=== PATIENT | male | born 1965 | race Caucasian/White ===

== ENCOUNTER → 2018-07-22 | Outpatient (CLI) | payer OTHER, BC ==
[~2018-07-22] MED LIST: IOPAMIDOL 76% 150 ML INFUS BTL 150 ML ONE
--- NOTE | 2018-07-22 16:50 | RADIOLOGY IMAGING REPORT ---
FACILITY: [facility] PATIENT NAME: Amarjit Keller : 1965 MR: [id number] V: [id number] EXAM DATE: ORDERING PHYSICIAN: RENA BORWN TECHNOLOGIST[place] [facility] [place] Amarjit [place] : 1965 Visit/Account:[id number] Date of Sevice: 07/22/2018 CT CHEST W & W/O CON HISTORY: Hypoxemia, right-sided pulmonary nodule TECHNIQUE: CT chest with and without intravenous contrast. Contiguous helical images was performed f rom the lung apices to below the diaphragm. One of the following dose optimization techniques was utilized in the performance of this exam: Autom ated exposure control; adjustment of the mA and/or kV according to the patient's size; or use of an i terative reconstruction technique. Specific details can be referenced in the facility's radiology C T exam operational policy. CONTRAST: 75 cc of Isovue-370 COMPARISON: None. FINDINGS: Heart/vessels: Left ventricle is dilated concerning for a dilated cardiomyopathy in this age group. Left atrium is also slightly dilated. Right heart is normal in size and configuration. Main pulmonary artery measures 3.3 cm. Recommend an echocardiogram for further evaluation. No evidence for central pulmonary embolism. Mediastinum: There is a small hiatal hernia. Lymph nodes: Slightly prominent mediastinal lymph nodes warrant follow-up. Sarcoidosis is not exclud ed. Prevascular lymph node image 22 measures 1 x 0.7 cm Right paratracheal lymph node image 28 measures 1.5 x 1 cm Right hilar lymph node image 43 measures 1.6 x 1.4 cm Subcarinal lymph node image 49 measures 3.6 x 1.4 cm. Lungs/pleura: Benign calcified right upper lobe granuloma measures 9 mm presumably accounting for th e plain film finding. There is an azygous lobe and azygous fissure which is a normal variant. Calcifi ed left lung granuloma is noted image 47. 5 mm noncalcified micronodule is noted series 11, image 139 . Mild bronchial thickening is noted. Some faint groundglass change around the right hilum image 152 is noted. Visualized upper abdomen: Negative. Bones/soft tissues: T8 compression fracture measures 30% of the vertebral body height of uncertain c hronicity. IMPRESSION: 1. Benign calcified 9 mm right upper lobe granuloma. Some other calcified benign granulomas are note d. 2. Dilated left ventricle out of proportion for age concerning for a dilated cardiomyopathy. Recommen d an echocardiogram for further evaluation. Left atrium is also slightly dilated. 3. Slightly prominent mediastinal lymph nodes described above. These lymph nodes could be reactive or possibly related to sarcoidosis. Recommend a follow-up CT scan in 3 months for reevaluation. 4. Right lower lobe noncalcified micronodule can be followed. Report Dictated By: Curtis Dickens MD at 07/22/2018 4:31 PM Report E-Signed By: Curtis Dickens MD at 07/22/2018 4:46 PM WSN:[id number]
== END ==
LOC: CT 15:44
PROVIDERS: ATTEND Physician Assistant
DX: R91.1 Solitary pulmonary nodule (principal)
CPT/HCPCS: 71270; Q9967

== ENCOUNTER 2018-10-04 09:20 | Inpatient (IN) | payer OTHER, BC ==
[~2018-10-04] VITALS: Ht 180.3 cm; Wt 108.3 kg
--- NOTE | 2018-10-04 09:31 | ER Report ---
History and Physical Time Seen By MD: 09:29 Hx. of Stated Complaint: HAD AND ECHO FOR LEG SWELLING. ECHO SENT PATIENT DUE TO EJECTION FRACTION. HPI/ROS CHIEF COMPLAINT: Shortness of breath HISTORY OF PRESENT ILLNESS: Patient is a 53-year-old male comes emergency Department today with a complaint of shortness of breath patient has been seen by primary care had a CT done after neb normal chest x-ray shows some cardiomyo jewell he's had some shortness of breath some exertional dyspnea echocardiogram was performed today and had an abnormal ejection fraction the low side sent him here for evaluation patient says he has no orthopnea no PND but has exertional dyspnea shortness of breath and lower extremity swelling bilaterally patient denies any abdominal pain nausea vomiting diarrhea fever chills REVIEW OF SYSTEMS: Respiratory: No cough Cardiovascular: No chest pain, no palpitations. Gastrointestinal: No vomiting, no abdominal pain. Musculoskeletal: No back pain. Remainder of the 14 system rev: Yes Allergies: Coded Allergies: No Known Drug Allergies (Unverified , 10/04/18) Home Meds No Active Prescriptions or Reported Meds Reviewed Nurses Notes: Yes Old Medical Records Reviewed: Yes Constitutional Vital Sign - Last 24 Hours 10/04/18 10/04/18 10/04/18 10/04/18 09:24 09:30 10:00 11:00 Temp 97.2 Pulse 97 99 86 84 Resp 18 27 19 20 B/P (MAP) 123/91 138/109 (119) 138/90 (106) 137/101 (113) Pulse Ox 91 91 90 88 O2 Delivery Room Air 10/04/18 10/04/18 11:30 12:00 Pulse 84 Resp 19 B/P (MAP) 136/100 (112) Pulse Ox 87 O2 Flow Rate 2.0 Physical Exam General Appearance: The patient is alert, has no immediate need for airway protection and no current signs of toxicity. [ ] Eyes: Pupils equal and round no injection. Respiratory: Bibasilar crackles Cardiac: regular rate and rhythm [ ] Gastrointestinal: Abdomen is soft and non tender, no masses, bowel sounds normal. Musculoskeletal: Neck: Neck is supple and non tender. Abdomen examination shows +2 pitting edema bilaterally Skin: No rashes or lesions. [ ] DIFFERENTIAL DIAGNOSIS: After history and physical exam differential diagnosis was considered for CHF CHF exacerbation exertional dyspnea myocardial infarction Medical Decision Making Data Points Result Diagram: 10/04/189547/19 0955 Laboratory Hematology Test 10/04/18 09:55 Red Blood Count 5.82 M/uL (4.00-5.60) Mean Corpuscular Volume 89.4 fL (80.0-96.0) Mean Corpuscular Hemoglobin 29.7 pg (26.0-33.0) Mean Corpuscular Hemoglobin Concent 33.3 g/dL (32.0-36.0) Red Cell Distribution Width 14.8 % (11.5-14.5) Mean Platelet Volume 9.7 fL (7.2-11.1) Neutrophils (%) (Auto) 67.2 % (39.4-72.5) Lymphocytes (%) (Auto) 21.0 % (17.6-49.6) Monocytes (%) (Auto) 9.7 % (4.1-12.4) Eosinophils (%) (Auto) 1.6 % (0.4-6.7) Basophils (%) (Auto) 0.5 % (0.3-1.4) Nucleated RBC Relative Count (auto) 0.3 /100WBC Neutrophils # (Auto) 5.2 K/uL (2.0-7.4) Lymphocytes # (Auto) 1.6 K/uL (1.3-3.6) Monocytes # (Auto) 0.8 K/uL (0.3-1.0) Eosinophils # (Auto) 0.1 K/uL (0.0-0.5) Basophils # (Auto) 0.0 K/uL (0.0-0.1) Nucleated RBC Absolute Count (auto) 0.02 K/uL D-Dimer Quantitative (PE/DVT) 0.67 ug/ml (0-0.50) Sodium Level 141 mmol/L (137-145) Potassium Level 4.6 mmol/L (3.5-5.0) Chloride Level 113 mmol/L (98-107) Carbon Dioxide Level 21 mmol/L (22-30) Blood Urea Nitrogen 22 mg/dl (9-21) Creatinine 1.30 mg/dl (0.66-1.25) Glomerular Filtration Rate Calc 57.7 Random Glucose 124 mg/dl (75-110) Calcium Level 9.1 mg/dl (8.4-10.2) Total Bilirubin 1.8 mg/dl (0.2-1.3) Aspartate Amino Transf (AST/SGOT) 48 U/L (0-35) Alanine Aminotransferase (ALT/SGPT) 78 U/L (0-56) Alkaline Phosphatase 71 U/L (0-126) Troponin I 0.049 ng/ml B-Type Natriuretic Peptide 1610 pg/ml (0-100) Total Protein 6.2 g/dl (6.3-8.2) Albumin 3.5 g/dl (3.5-5.0) Chemistry Test 10/04/18 09:55 White Blood Count 7.8 k/uL (4.5-11.0) Red Blood Count 5.82 M/uL (4.00-5.60) Hemoglobin 17.3 g/dL (14.0-18.0) Hematocrit 52.0 % (42.0-52.0) Mean Corpuscular Volume 89.4 fL (80.0-96.0) Mean Corpuscular Hemoglobin 29.7 pg (26.0-33.0) Mean Corpuscular Hemoglobin Concent 33.3 g/dL (32.0-36.0) Red Cell Distribution Width 14.8 % (11.5-14.5) Platelet Count 185 K/uL (150-450) Mean Platelet Volume 9.7 fL (7.2-11.1) Neutrophils (%) (Auto) 67.2 % (39.4-72.5) Lymphocytes (%) (Auto) 21.0 % (17.6-49.6) Monocytes (%) (Auto) 9.7 % (4.1-12.4) Eosinophils (%) (Auto) 1.6 % (0.4-6.7) Basophils (%) (Auto) 0.5 % (0.3-1.4) Nucleated RBC Relative Count (auto) 0.3 /100WBC Neutrophils # (Auto) 5.2 K/uL (2.0-7.4) Lymphocytes # (Auto) 1.6 K/uL (1.3-3.6) Monocytes # (Auto) 0.8 K/uL (0.3-1.0) Eosinophils # (Auto) 0.1 K/uL (0.0-0.5) Basophils # (Auto) 0.0 K/uL (0.0-0.1) Nucleated RBC Absolute Count (auto) 0.02 K/uL D-Dimer Quantitative (PE/DVT) 0.67 ug/ml (0-0.50) Glomerular Filtration Rate Calc 57.7 Calcium Level 9.1 mg/dl (8.4-10.2) Total Bilirubin 1.8 mg/dl (0.2-1.3) Aspartate Amino Transf (AST/SGOT) 48 U/L (0-35) Alanine Aminotransferase (ALT/SGPT) 78 U/L (0-56) Alkaline Phosphatase 71 U/L (0-126) Troponin I 0.049 ng/ml B-Type Natriuretic Peptide 1610 pg/ml (0-100) Total Protein 6.2 g/dl (6.3-8.2) Albumin 3.5 g/dl (3.5-5.0) Coagulation Test 10/04/18 09:55 D-Dimer Quantitative (PE/DVT) 0.67 ug/ml ED Course/Re-evaluation ED Course ED course medical decision make a 50-year-old male sent here after having an abnormal echocardiogram showing an ejection fraction about 25-20% patient has no known clear etiology of his new onset congestive heart failure he had a BNP of 1600 on arrival here to slight bump in his d-dimer 0.[address] injury and subsequently followed resulting in an obstructive pattern consistent with a right lower lobe infarct secondary to a pulmonary embolus. Due to his comorbidities Nuance of diagnosis and his pulmonary embolus will admit him to date for hospitalist service for further workup and management Decision to Disposition Date: Oct 04, 2018 Decision to Disposition Time: 12:12 Depart Departure Latest Vital Signs Vital Signs Date Time Temp Pulse Resp B/P (MAP) Pulse Ox O2 Delivery O2 Flow Rate FiO2 10/04/18 12:00 2.0 10/04/18 11:30 84 19 136/100 (112) 87 10/04/18 09:24 97.2 Room Air Impression: Primary Impression: Pulmonary embolus Additional Impression: Congestive heart failure Condition: Improved Disposition: Admitted from ER New Scripts No Active Prescriptions or Reported Meds Problem Qualifiers DELTA WALKER MD Oct 04, 2018 09:31
[2018-10-04 09:50] LABS: PLATELET COUNT, AUTOMATED 185 K/uL (150-450)
--- NOTE | 2018-10-04 10:19 | RADIOLOGY IMAGING REPORT ---
FACILITY: [facility] PATIENT NAME: Amarjit Keller : 1965 MR: [id number] V: [id number] EXAM DATE: ORDERING PHYSICIAN: DELTA WALKER TECHNOLOGIST: Location: [facility] [place] Patient: Amarjit Keller : 1965 Visit/Account:[id number] Date of Sevice: 10/04/2018 Exam type: CHEST PA LAT History: Hypoxemia, right pulmonary nodule Comparison: CT of the chest July 22, 2018. Findings: 9 mm partially calcified nodule in the right midlung field is again seen. There is now blunted right costophrenic angle not present previously consistent with a small right pleural effusion. Cardiac s ilhouette is enlarged. There is no evidence of overt pulmonary edema. Mild spondylotic changes of t he thoracic spine IMPRESSION: 1. 9 mm partially calcified nodule in the right midlung field appears similar to the prior CT Small right pleural effusion Report Dictated By: Delmy Elizabeth MD at 10/04/2018 10:13 AM Report E-Signed By: Delmy Elizabeth MD at 10/04/2018 10:15 AM WSN:[id number]
[2018-10-04] MEDS ORDERED: NS(*) 0.9% 50 ML BAG 50 ML ONE (10:33)
[2018-10-04] MEDS ORDERED: IOPAMIDOL 76% 100 ML INFUS BTL 100 ML ONE (10:33)
--- NOTE | 2018-10-04 11:00 | EKG ---
FACILITY: [facility] PATIENT NAME: RANDY GALO : [id number] MR: [id number] V: [id number] EXAM DATE: ORDERING PHYSICIAN: DELTA WALKER TECHNOLOGIST: Test Reason : Blood Pressure : / mmHG Vent. Rate : 093 BPM Atrial Rate : 093 BPM P-R Int : 152 ms QRS Dur : 104 ms QT Int : 394 ms P-R-T Axes : 063 063 058 degrees QTc Int : 489 ms Sinus rhythm with occasional premature ventricular complexes ST depression in in lead II No previous ECGs available Confirmed by KRISTEN WONG ([id number]) on 10/04/2018 4:01:28 PM Referred By: Confirmed By:KRSITEN WONG
--- NOTE | 2018-10-04 11:27 | RADIOLOGY IMAGING REPORT ---
FACILITY: [facility] PATIENT NAME: Amarjit Keller : 1965 MR: [id number] V: [id number] EXAM DATE: ORDERING PHYSICIAN: DELTA WALKER TECHNOLOGIST: Location: [facility] [place] Patient: Amarjit Keller : 1965 Visit/Account:[id number] Date of Sevice: 10/04/2018 CT CTA CHEST W & W/O CON HISTORY: Rule out pulmonary embolism ADDITIONAL HISTORY: None. TECHNIQUE: CTA chest with intravenous contrast. Axial imaging acquired following administration of IV contrast timed for maximum opacification of the pulmonary arterial vasculature. Slab 3-D MIP sanford nstructed images were also created for further evaluation and interpretation. Reconstruction of the [facility] data set includes multiplanar 2-D in the sagittal and coronal planes and 3-D reconstructed milagro nal slab MIP series. 3-D images were created by the technologist.Dose Lowering Technique One of the following dose optimization techniques was utilized in the performance of this exam: Autom ated exposure control; adjustment of the mA and/or kV according to the patient's size; or use of an i terative reconstruction technique. Specific details can be referenced in the facility's radiology C T exam operational policy. CONTRAST: 90 mL Isovue-370 COMPARISON: July 22, 2018 FINDINGS: Lungs/pleura: 1 cm calcification in the superior right middle lobe is again seen. There is been dev elopment of a small to moderate posterior layering right pleural effusion and a small amount compress raymond atelectasis the right lower lobe. There is chronic scarring in the left lower lobe that appears unchanged small calcified granulomas i n the inferior left upper lobe again seen. There is a tiny left pleural effusion Heart/vessels: The contrast bolus to the segmental and subsegmental arterial branches in the right l ower lobe is asymmetric relative to the remainder the pulmonary arterial tree. Discrete cut off of t he vessels is not seen however this finding is suspicious for potential pulmonary emboli. The remain elieser the pulmonary arterial tree is well-opacified. Again noted is cardiomegaly Mediastinum/lymph nodes: There has been a slight increase in the mediastinal adenopathy. The prevascular space lymph node previously measured 1 x 0.7 cm now measures 1.4 x 1 cm. . There are new prevascular space lymph nodes the largest now measuring 1.4 x 1.3 cm. The pretracheal lymph node previously measured 1.5 x 1 cm now measures 1.9 x 1.6 cm. the right hilar lymph node previously measured 1.6 x 1.4 cm now measures 2 x 1.2 cm. Subcarinal lymph node previously measured 3.6 x 1.4 cm now measures 3.3 x 2.2 cm Visualized upper abdomen: There suggestion of mild gallbladder wall thickening Bones/soft tissues: Spondylotic changes of the thoracic spine. Mild compression fracture T8 appears unchanged Additional findings: None IMPRESSION: The contrast bolus to the segmental and subsegmental arterial branches to the right lower lobe is asy mmetric relative to the remainder the pulmonary arterial tree. Discrete cutoff of vessels is not see n however this finding is suspicious for pulmonary emboli given the asymmetry. Cardiomegaly There is a small to moderate posterior layering right pleural effusion and compressive atelectasis in the right lower lobe Chronic scarring left lower lobe Tiny left pleural effusion Slight increase in the mediastinal adenopathy as described above. This could be reactive however fol low-up recommended Suggestion of mild gallbladder wall thickening Results were called to Rajinder Grier at 10/04/2018 11:22 AM. Report Dictated By: Delmy Elizabeth MD at 10/04/2018 10:53 AM Report E-Signed By: Delmy Elizabeth MD at 10/04/2018 11:23 AM WSN:[email or web address]
[2018-10-04 12:55] VITALS: BP 108/86
[2018-10-04] MEDS ORDERED: FUROSEMIDE 40 MG/4 ML VIAL IVP ONE (15:00)
--- NOTE | 2018-10-04 15:17 | History & Physical ---
History of Present Illness Chief Complaint Shortness of breath History of Present Illness This patient presented to the emergency room after an echocardiogram earlier today. He was sent after it was discovered that his ejection fraction was nahomy mated to be 20-25%. He reports that he has been feeling increased fatigue since March. He was treated with antibiotics several times since then for respiratory type complaints. A CT scan was done in June and showed a dilated left ventricle. He is now having increased fatigue and feels that he is only to do 30% of the work he is accustomed to. He has also developed shortness of breath and swelling in his legs. History Problems: (1) Acute systolic (congestive) heart failure Home Meds No Active Prescriptions or Reported Meds Allergies: Coded Allergies: No Known Drug Allergies (Unverified , 10/04/18) Smoking Status: Never Smoker Exposure to Second Hand Smoke?: Yes Caffeine Intake: Tea Caffeine/Cups Per Day: Rarely History of IV Drug Use: No Review of Systems All Systems Reviewed/Normal: Yes, Except as Noted Neurological: Weakness Respiratory: Shortness of Breath Exam Vital Signs Vital Signs Date Time Temp Pulse Resp B/P (MAP) Pulse Ox O2 Delivery O2 Flow Rate FiO2 10/04/18 12:55 91 Room Air 10/04/18 12:55 97.8 77 20 108/86 (93) 10/04/18 12:00 2.0 Neuro: No Gross deficits Eyes: PERRLA Cardiovascular: Regular Rate and Rhythm, Other (JVD present.) Respiratory: Clear to Auscultation GI: Abd Soft and Non-Tender Extremities: Edema Medical Decision Making Data Points Result Diagram: 10/04/18 0955 10/04/18 0955 Assessment and Plan Problems: (1) Acute systolic (congestive) heart failure Assessment & Plan: His echocardiogram showed an ejection fraction of 20% and a severely dilated left heart. He has no history of heart failure or cardiac diseases. His symptoms seem to have developed in March and seems to be associated with a respiratory illness. 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 We have started him on scheduled Lasix and a low dose of lisinopril. Daily weights are ordered. (2) Pulmonary embolus Status: Acute Assessment & Plan: His CT scan showed an area of asymmetric contrast in the right lung, but did not definitively identify a clot. We have elected not to start full anticoagulation at this time. He has been placed on prophylactic Lovenox. (3) Enlarged lymph node Assessment & Plan: His CT scan did find mediastinal adenopathy that was slightly increased compared to a previous study. Venous Thromboembolism Antithrombotics Is Pt On Any Antithrombotics?: No Exam Sepsis Risk: No Definite Risk KRISTEN WONG DO Oct 04, 2018 15:17
[2018-10-04 15:30] VITALS: BP 124/95
[2018-10-04 18:43] VITALS: BP 130/100
[2018-10-04 23:42] VITALS: BP 132/102
[2018-10-05 03:25] VITALS: BP 129/99
[2018-10-05 05:38] LABS: PLATELET COUNT, AUTOMATED 162 K/uL (150-450)
[2018-10-05 06:46] VITALS: BP 142/106
[2018-10-05] MEDS ORDERED: LISINOPRIL 10 MG TAB PO SCH (09:00)
[2018-10-05] MEDS ORDERED: ENOXAPARIN 40 MG/0.4ML SYR SC SCH (09:00)
[2018-10-05] MEDS ORDERED: FUROSEMIDE 40 MG/4 ML VIAL IVP SCH (09:00)
[2018-10-05 09:23] VITALS: BP 143/103
[2018-10-05] MEDS ORDERED: METOPROLOL SUCC XL 25 MG TABCR PO SCH (12:20)
[2018-10-05 12:48] VITALS: BP 137/95
[2018-10-05] MEDS ORDERED: FUROSEMIDE 40 MG TAB PO SCH (14:00)
--- NOTE | 2018-10-05 14:48 | RADIOLOGY IMAGING REPORT ---
FAC[place] [facility] [place] PATIENT NAME: Amarjit Keller : 1965 MR: [id number] V: [id number] EXAM DATE: ORDERING PHYSICIAN: JAZZMINE CANDELARIA TECHNOLOGIST: Location: [facility] Patient: Amarjit Keller : 1965 Visit/Account:[id number] Date of Sevice: 10/05/2018 US VENOGRAM EXTREMITY, BILATERAL HISTORY: Pulmonary emboli, evaluate for DVT COMPARISON: CT scan 10/04/2018 FINDINGS: Grayscale, duplex and color Doppler interrogation of the bilateral lower extremity deep veins from co mmon femoral vein to proximal calf was completed. The greater saphenous vein in the right and left pr oximal thigh was evaluated using similar technique. RIGHT lower extremity Common femoral vein: Negative. Femoral vein: Negative. Deep femoral vein: Negative. Popliteal vein: Negative. Visualized deep calf veins: Negative. Popliteal fossa: Negative. Greater saphenous vein in the proximal thigh: Negative. LEFT lower extremity: Common femoral vein: Negative. Femoral vein: Negative. Deep femoral vein: Negative. Popliteal vein: Negative. Visualized deep calf veins: Negative. Popliteal fossa: Negative. Greater saphenous vein in the proximal thigh: Negative. IMPRESSION: 1. No evidence for DVT in either lower extremity. 2. Soft tissue edema in the right lower extremity is noted. Report Dictated By: Curtis Dickens MD at 10/05/2018 2:41 PM Report E-Signed By: Curtis Dickens MD at 10/05/2018 2:44 PM WSN:[id number]
[2018-10-05] MEDS ORDERED: FURO-47 PO (15:12)
[2018-10-05] MEDS ORDERED: LISI-362 PO (15:12)
[2018-10-05] MEDS ORDERED: METO25TA23 PO (15:12)
--- NOTE | 2018-10-05 15:25 | Hospitalist Depart ---
Discharge Summary Reason for Hosp/Final Diag: (1) Acute systolic (congestive) heart failure Status: Acute Hospital Course & Plan: The patient had a history of prolonged respiratory illness over several months prior to admission. With this he had worsening fatigue. His echocardiogram showed an ejection fraction of 20% and a severely dilated left heart. He has no history of heart failure or cardiac diseases. He has no family history of coronary artery disease. He has no history of hyperlipidemia or HTN to his knowledge. 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 He was started on scheduled Lasix, a low dose of lisinopril and metoprolol succinate. Cardiology at [facility] was consulted by phone and recommended the patient be seen in the week after discharge. The patient was instructed to follow his weight and record it. He was also instructed to wear oxygen (1-2 liters) at night and as needed during the day for saturations < 90%. (2) Pulmonary embolus Status: Acute Hospital Course & Plan: His CT scan showed an area of asymmetric contrast in the right lung, but did not definitively identify a clot. Venous dopplers of both LE did not show any evidence of blood clot. The patient has no personal or family history of blood clots. He has not been sedentary and in fact worked up until the day before admission. He was not started on full anticoagulation. He was placed on prophylactic Lovenox during his inpatient stay. (3) Enlarged lymph node Status: Chronic Hospital Course & Plan: His CT scan did find mediastinal adenopathy that was slightly increased compared to a previous study. This will need continued surveillance as an outpatient. Departure Weight (Pounds): 238 Weight (Ounces): 12.0 Result Diagram: 10/05/1851110/05/18511 Condition: Improved Discharge: Home, Self Care Time Spent: < 30 min Discharge Instructions Home Meds No Active Prescriptions or Reported Meds Activity: No Heavy Lifting, No Exertion Special Instructions: The patient should follow a low salt diet. The patient is to call [facility] cardiology to schedule an appointment in the next week. The on-call tar worker that was consulted indicated he would leave a message for scheduling at [facility] cardiology to facilitate a prompt appointment. Copies to: PIA SALDIVAR; LASHONDA ACEVEDO DO ; Venous Thromboembolism Antithrombotics Is Pt On Any Antithrombotics?: No JAZZMINE CANDELARIA MD Oct 05, 2018 15:25
[2018-10-08] MEDS ORDERED: INFLUENZA VIRUS VAC 0.5ML SYR IM ONLY ONE (09:00)
== END 2018-10-05 16:10 | disposition home or self-care (01) | DRG 293 ==
LOC: ER 09:26 → MED 12:40
PROVIDERS: ADMIT Family Medicine; ATTEND Family Medicine
DX: I50.21 Acute systolic (congestive) heart failure (principal); R59.0 Localized enlarged lymph nodes
CPT/HCPCS: 36415; 71046; 71275; 82040; 82247; 82310; 82374; 82435; 82565; 82947; 83880; 84075; 84132; 84155; 84295; 84450; 84460; 84484; 84520; 85025; 85379; 93005; 93970; 99285; J1650; J1940; J7050; Q9967

== ENCOUNTER → 2018-10-04 | Outpatient (CLI) | payer OTHER, BC ==
[~2018-10-04] MED LIST changes: +FURO-47 PO; -IOPAMIDOL 76% 150 ML INFUS BTL 150 ML ONE; +LISI-362 PO; +METO25TA23 PO
== END ==
LOC: US 07:51
PROVIDERS: ATTEND Nurse Practitioner Psychiatric/Mental Health
DX: I51.7 Cardiomegaly (principal); I34.0 Nonrheumatic mitral (valve) insufficiency
CPT/HCPCS: 93306